=== PATIENT | male | born 1950 | race Caucasian/White ===

== ENCOUNTER 2016-10-09 20:56 | Observation (INO) | payer MEDICARE ==
--- NOTE | 2016-10-09 23:10 | ED ORDER SUMMARY ---
..... Patient: DARIAN CLEVELAND OrderSheet [facility] VisitID: [id number] [place] [address] 65y, M Registration Date/Time: 10/09/2016 ORDER SHEET Weight: 77.5 kg (stated) Allergies: None GENERAL ORDERS: Hospice Executive Director (Continuous) (CP) (20:59 10/09/2016 Leonid Elizondo) (Ack 21:13 AMcQuoid ER Tech1) (21:13 AMcQuoid ER Tech1) EKG - ER Stat (20:59 10/09/2016 Leonid Elizondo) (Ack 21:13 AMcQuoid ER Tech1) (21:13 AMcQuoid ER Tech1) Pulse oximeter (20:59 10/09/2016 Leonid Elizondo) (Ack 21:13 AMcQuoid ER Tech1) (21:13 AMcQuoid ER Tech1) Chest 2V Urgent (21:10/09/2016 Leonid Elizondo) (Ack 21:13 AMcQuoid ER Tech1) (21:15 Bart R.NShanelle) CBC w Diff Urgent (21:10/09/2016 Leonid Elizondo) (Ack 21:13 AMcQuoid ER Tech1) (21:13 AMcQuoid ER Tech1) CMP Urgent (21:10/09/2016 Leonid Elizondo) (Ack 21:13 AMcQuoid ER Tech1) (21:13 AMcQuoid ER Tech1) UA-Culture if indicated Urgent (21:10/09/2016 Leonid Elizondo) (Ack 21:13 AMcQuoid ER Tech1) PT with INR Urgent (21:10/09/2016 Leonid Elizondo) (Ack 21:13 AMcQuoid ER Tech1) (21:13 AMcQuoid ER Tech1) D-Dimer Urgent (21:10/09/2016 Leonid Elizondo) (Ack 21:13 AMcQuoid ER Tech1) (21:13 AMcQuoid ER Tech1) Lipase Urgent (21:10/09/2016 Leonid Elizondo) (Ack 21:13 AMcQuoid ER Tech1) (21:13 AMcQuoid ER Tech1) Troponin-I Urgent (21:19 10/09/2016 Leonid Elizondo) (21:27 AMcQuoid ER Tech1) CTA Thorax w Cont (No) (GFR > 60) Urgent (22:18 10/09/2016 Leonid Elizondo) (Ack 22:38 AMcQuoid ER Tech1) (23:01 MCampbell) Consult - Surgery (23:17 10/09/2016 Leonid Elizondo) (23:36 AMcQuoid ER Tech1) US Abdomen Limited (Yes) Urgent (23:30 10/09/2016 Leonid Elizondo) (Ack 23:36 AMcQuoid ER Tech1) (0:44 GUnger) MEDICATION ORDERS: GI Cocktail WHITE PO 30 mL (NOW) (21:09 10/09/2016 Leonid Elizondo) (Ack 21:15 KPage-Kuchan R.N.) (21:25 KPage-Kuchan R.N.) IV FLUIDS: IV Saline Lock (20:59 10/09/2016 Leonid Elizondo) (Ack 21:09 RCollier R.N.) (21:15 KPage-Kuchan R.N.) Zosyn IV 4.5 gm/100mL (NOW) (23:19 10/09/2016 Leonid Elizondo) (Ack 23:24 KPage-Kuchan R.N.) (0:09 KPage-Kuchan R.N.) ORDER SHEET NOTES: [Electronically signed by Laura Reagan R.N. (13:58 10/10/2016)] [Electronically signed by John Cole Dr. (13:21 10/15/2016)] [Electronically locked/signed by Laura Reagan R.N. (13:58 10/10/2016)]
--- NOTE | 2016-10-09 23:10 | ED CLINICAL REPORT ---
Clinical Report - Physicians/Mid Levels [facility] [address] [place] [address] 10/09/2016 20:55 Patient: DARIAN CLEVELAND Arrived- By ambulance. Historian- patient. HISTORY OF PRESENT ILLNESS Chief Complaint: CHEST PAIN. It is described as dull and it is described as located in other area (lower anterior chest). No radiation. This started today and is still present (unchanged). It was abrupt in onset and has been constant but is not gone now. Onset during rest. At its maximum, severity described as moderate. When seen in the E.D., severity described as moderate. Modifying factors- (worsened by nitro). Not relieved by anything. No nausea, vomiting, difficulty breathing or diaphoresis. No additional chest pain. Similar symptoms previously: None. Recent medical care: Not recently seen/assessed. REVIEW OF SYSTEMS No fever, chills or skin rash. All systems otherwise negative, except as recorded above. PAST HISTORY See nurses notes. SOCIAL HISTORY Never smoker. No alcohol use or drug use. No recent travel. Is a local resident. retired EMT. FAMILY HISTORY Negative. No history of heart disease. ADDITIONAL NOTES The nursing notes have been reviewed. PHYSICAL EXAM Vital Signs: 10/09/2016 20:57 BP: 130/83. HR: 76. RR: 19. O2 saturation: 97%. Temp: 98.1 F. Pain level now: 7/10. Blood pressure normal. Oxygen saturation normal. Appearance: Alert. Oriented X3. No acute distress. Eyes: Pupils equal, round and reactive to light. Eyes normal inspection. ENT: Ears normal. Nose normal. Pharynx normal. Neck: Normal inspection. Neck supple. CVS: Normal heart rate and rhythm. Heart sounds normal. Pulses normal. Respiratory: No respiratory distress. Breath sounds normal. Chest nontender. No rales, rhonchi or wheezes. Abdomen: Soft and nontender. Bowel sounds normal. Skin: Skin warm and dry. Normal skin color. No rash. Normal skin turgor. Extremities: Extremities exhibit normal ROM. No lower extremity edema. LABS, X-RAYS, AND EKG EKG: No acute ischemia. Normal sinus rhythm. Rate: 79. Normal P waves. Normal SIMONA. Normal QRS complex. Normal axis. Normal ST and T waves, QT and QTc. The study has been interpreted contemporaneously by me. The study has been independently viewed by me. The EKG appears to be a good tracing. Chest X-ray: (PROCEDURE: XR CHEST 2 VIEW INDICATION: Epigastric pain. Recent pneumonia. TECHNIQUE: PA and lateral views. COMPARISON: None. FINDINGS: There are mild parenchymal changes in the right lung (most pronounced in the right upper lung). There are mild nodular parenchymal change in the left mid lung. Heart and mediastinum are normal. Thorax is normal. IMPRESSION: 1. Mild parenchymal changes in the right lung consistent with pneumonia (e.g. resolving pneumonia) or chronic scarring. 2. Mild nodular parenchymal changes in the left mid lung. Consider underlying lung nodule or calcified pleural plaque.). Chest CT: (PROCEDURE: CTA THORAX WITH CONTRAST INDICATION: Epigastric pain. Recent pneumonia. Elevated D-dimer 0.85). Possible left lung nodule. TECHNIQUE: 88 ml of Isovue 370 was injected intravenously and axial images were obtained of the entire thorax with 3D sagittal and coronal MIP reconstructions. COMPARISON: Comparison is made to chest x-ray earlier today (10/09/2016). FINDINGS: There are moderate parenchymal changes in the right upper lung with mild parenchymal changes in the left upper lung. Findings are consistent with resolving pneumonia. Bilateral calcified pleural plaques (accounts for nodular changes on chest x-ray earlier today) with right diaphragmatic calcification (asbestosis). Pulmonary vessels are normal and there is no evidence of pulmonary embolus. Heart and mediastinum are normal. Mild degenerative change of the thoracic spine. Portions of the gallbladder are seen. There is marked thickening of the gallbladder wall pericholecystic fluid. IMPRESSION: 1. Moderate parenchymal changes in the right upper lung compatible with pneumonia (or resolving pneumonia). 2. Bilateral calcified pleural plaques consistent with asbestosis. No evidence of left lung mass or nodule (as suggested on radiographs earlier in the day). 3. No evidence of pulmonary embolus. 4. Gallbladder is partially visualized with marked thickening of the gallbladder wall and pericholecystic fluid. Findings are consistent with cholecystitis (most likely acute). Ultrasound is recommended to further evaluate.). The study was independently viewed by me and interpreted by the radiologist. The study was discussed with the radiologist (via pacs). Abdominal Sonogram: (PROCEDURE: US ABDOMEN ULTRASOUND-LIMITED INDICATION: Follow-up abnormal gallbladder. TECHNIQUE: Archuleta scale and color Doppler sonographic images of the abdomen were obtained. COMPARISON: None. FINDINGS: There is moderate to marked distention of the gallbladder with marked gallbladder wall thickening (6 mm). There is no evidence of gallstones. There is no evidence of pericholecystic fluid (as suggested on CT). Common duct is normal (7 mm). Portions of the liver, pancreas, and right kidney are seen, and are normal. IMPRESSION: 1. Moderate to marked distention of the gallbladder with marked gallbladder wall thickening (6 mm). No evidence of gallstones or pericholecystic fluid. 2. Findings are compatible with acute cholecystitis (i.e., most likely acalculus cholecystitis).). The study was independently viewed by me and interpreted by the radiologist. The study was discussed with the radiologist (via phone and pacs). Laboratory Tests: CBC w Diff: (THADDEUS: 10/09/2016 21:03) ( MsgRcvd 10/09/2016 21:25) Final results Test Result Flag Units (Reference) WHITE BLOOD COUNT 7.6 K/uL (4.5-11.5) RED BLOOD COUNT 4.17 L M/uL (4.50-5.90) HEMOGLOBIN 13.2 L gm/dL (13.5-17.5) HEMATOCRIT 39.1 L % (41.0-53.0) MEAN CELL VOLUME 94 fL (80-100) MEAN CORPUSCULAR HGB 32 pg (26-34) MEAN CORPUSCULAR HGB CONC 34 g/dL (31-37) RED CELL DISTRIBUTION WIDTH 12.7 % (11.6-14.8) PLATELET COUNT 271 K/uL (150-400) NEUTROPHIL % 68.8 % (50-75) LYMPH % 16.1 L % (25-40) MONO % 8.4 % (3-14) EOSINOPHIL % 6.4 H % (0-4) BASOPHIL % 0.3 % (0-2) PT with INR: (THADDEUS: 10/09/2016 21:03) ( MsgRcvd 10/09/2016 21:33) Final results Test Result Flag Units (Reference) INR 0.9 (0.8-1.2) Low Intensity Therapy: INR 1.5-2.0 PT range 18.5-23.1Mod.Intensity Therapy: INR 2.0-3.0 PT range 23.1-31.5High Intensity Therapy: INR 2.5-3.5 PT range 27.4-35.5High Intensity Therapy 2: INR 3.0-4.0 PT range 31.5-39.3 D-DIMER QUANTITATIVE 0.85 H ug/mLFEU (0.27-0.52) The primary value of this quantitative assay relates toits negative predictive value (i.e. exclusion) of pulmonaryembolism/deep vein thrombosis/DIC.Elevated levels of d-dimer may also occur with:, age, cancer, inflammation, liver disease,post-op, infection, hematoma, coronary disease, peripheralarteriopathy, bleeding disorders and thrombolytic treatment.Results should be correlated with other clinical andradiological data.Testing Methodology: Latex Immunoassay Troponin-I: (THADDEUS: 10/09/2016 21:19) ( SdgRcvd 10/09/2016 21:47) Final results Test Result Flag Units (Reference) TROPONIN I <0.05 L ng/mL (0.00-1.5) TROPONIN REFERENCE RANGE:<0.1 NEGATIVE0.1-1.5 INDETERMINANT>1.5 POSITIVE CMP: (THADDEUS: 10/09/2016 21:03) ( [facility] Final results Test Result Flag Units (Reference) GLUCOSE 116 H mg/dL (70-110) BUN 22 H mg/dL (7-18) CREATININE 1.2 mg/dL (0.6-1.3) Estimated GFR >60 mL/min Estimated GFR- >60 mL/min Note: Persistent reduction over 3 months in eGFR<60 mL/min/1.73 m2 defines CKD. Patients with eGFR values>=60 mL/min/1.73 m2 may also have CKD if evidence ofpersistent proteinuria. Additional information may be foundat www.[email or web address].org. SODIUM 143 mmol/L (136-145) POTASSIUM 4.3 mmol/L (3.5-5.1) CHLORIDE 104 mmol/L (98-107) CARBON DIOXIDE 28 mmol/L (21-32) CALCIUM 9.0 mg/dL (8.5-10.1) TOTAL PROTEIN 7.3 g/dL (6.4-8.2) ALBUMIN 3.8 g/dL (3.3-5.0) BILIRUBIN, TOTAL 0.5 mg/dL (0.0-1.0) ALKALINE PHOSPHATASE 116 U/L (46-116) AST (SGOT) 48 H U/L (15-37) ALT (SGPT) 73 U/L (12-78) LIPASE 203 U/L (73-393) . PROGRESS AND PROCEDURES Course of Care: the patient is a pleasant 65-year-old male with no pertinent past medical history presented for evaluation of what patient describes as chest pain. Patient has a port into the lower part of his chest. Patient reports no other concerning factors. Patient will be evaluated for chest pain causes including acute myocardial infarction, pulmonary embolism, pneumonia, pneumothorax. Because of the position of pain, isinferiorly located in the chest. We'll also evaluate patient for possible epigastric abdominal pain symptoms Including lipase and liver function studies.. Patient's initial examination the abdomen is benign. No findings of abdominal tenderness. On palpation of the patient's abdomen patient reports that the pain is higher. Patient's workup was remarkable for elevated d-dimer. Because of the patient's elevated d-dimer and chest pain, patient will be evaluated CT scan of the and chest for pulmonary embolism. Patient is agreeable to the treatment and plan. Patient is resting in bed and in no acute distress. Pain improved however worsened with nitroglycerin. Not likely cardiac. Patient's CT scan was remarkable for the findings above. Patient's "chest pain "appears to be epigastric in origin. Had discussion with patient in regards to symptoms here in the emergency department. Patient be admitted. I discussion with the general surgery in regards to patient's presentation here in the emergency department. No further recommendations. Patient will be admitted under the general surgery service with medicine consultation. Spoke with the hospitalist who will help consult with the patient. No other acute abnormalities noted. Discussed with the patient his workup here in the emergency department, plan of care, and diagnosis. All questions have been answered. The patient expressed understanding of these instructions and was agreeable to them. Do not fill symptoms at this time are because of pulmonary embolism, acute myocardial infarction, or intrathoracic pathology. Symptoms arelikely related to gallbladder given patient's abnormal CT scan. Critical care performed (40 minutes). Time is exclusive of separately billable procedures. Time includes: direct patient care, patient reassessment, coordination of patient care, interpretation of data (laboratory data), review of patient's medical records, medical consultation and documentation of patient care. CLINICAL IMPRESSION acute cholecystitis atypical chest pain. (Electronically signed by John Cole Dr. 10/15/2016 13:21)
--- NOTE | 2016-10-09 23:10 | ED NURSING NOTES ---
Clinical Report - Nurses [facility] [address] [place] [address] 10/09/2016 20:55 Patient: DARIAN CLEVELAND TRIAGE Triage time 20:57 Apr 2016. Acuity: LEVEL 2. Chief Complaint: CHEST PAIN and (pt c/o ss cp that began while cooking dinner, pt prior had been chopping wood- denied pain while exerting. describes as "an ache"). Alert. No acute distress. SEPSIS SCREEN: Sepsis Screen: negative. Negative (no infection suspected/documented). --21:12 Laura Reagan R.N. 20:57 10/09/16. BP: 130/83. HR: 76. RR: 19. O2 saturation: 97% on room air. Temp: 98.1 F. Pain level now: 01/07. --21:12 Laura Reagan R.N. Weight: 77.5 kg stated. Height/Length: 73 inches Per Patient. BMI: 22.5. --13:57 Laura Reagan R.N. Medications Atorvastatin Calcium Oral. --21:08 Laura Reagan R.N. Aspirin Adult Low Strength Oral. --21:08 Laura Reagan R.N. Aspirin Oral (Tablet 325 mg) 1 tablet, daily. --21:08 Laura Reagan R.N. Medication/allergy information source: the patient. --21:12 Laura Reagan R.N. Allergies None. --21:06 Laura Reagan R.N. History Arrived by EMS, and from home. Historian: patient. ( pt d/c for sepsis, while inpatient pt reports having HR up to the 200's). He has had nausea. 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 See EMS report. PAST MEDICAL HX: Immunizations: up-to-date. SOCIAL HX: Former smoker, end date 2014. Alcohol use; consumes beer occasionally. No drug use. No infectious disease exposure. ABUSE ASSESSMENT: No report of abuse. SELF HARM ASSESSMENT: A self harm assessment was performed. The patient answered "no" to the question "Have you recently felt down, depressed, or hopeless?", "Have you noticed less interest or pleasure in doing things?", "Do you have thoughts of harming or killing yourself?", "Are you here because you tried to hurt yourself?", "Have you ever tried to hurt yourself before today?", "Have you recently had thoughts about harming or killing others?" and "Do you have any dangerous items in your possession?". NUTRITIONAL RISK ASSESSMENT: The nutritional risk assessment revealed no deficiencies. LEARNING NEEDS ASSESSMENT: The learning needs assessment revealed no barriers. FUNCTIONAL ASSESSMENT: Functional assessment performed: hard of hearing in both ears and uses a hearing aid in both ears- this hearing impairment is an ongoing problem. SKIN INTEGRITY ASSESSMENT: Skin integrity risk assessment completed. No skin integrity risk identified. --21:12 Laura Reagan R.N. PROBLEMS: Elevated Cholesterol. Arterial spasms. --21:09 Laura Reagan R.N. ADDITIONAL SURGERIES: Cataract Surgery. Cervical discectomy. --21:10 Laura Reagan R.N. Interventions ID band on patient. To treatment room. --21:12 Laura Reagan R.N. PHYSICAL ASSESSMENT GENERAL / NEURO / PSYCH: Alert. Oriented X 4. Appears in no acute distress. HEENT: Mucous membranes are pink. RESPIRATORY: Respirations not labored. Chest nontender. Breath sounds within normal limits. CVS: Cardiac rhythm: no ectopy noted (SR). Heart sounds within normal limits. Pulses within normal limits. Capillary refill less than 2 seconds. GI / : Abdomen soft and nontender. EXTREMITIES: No lower extremity edema. SKIN: Skin is warm and dry. Normal skin turgor. Skin is non-tender. --21:13 Laura Reagan R.N. To room via stretcher. --21:13 Laura Reagan R.N. NURSING PROGRESS NOTES monitoring manager, pulse oximeter and NIBP monitor placed on patient; teletypesetter monitor- Lead II and V5; monitor alarms on. Patient gowned. Head of bed elevated. Reassurance given to the patient and patient's family. Two patient identifiers checked. Call light placed in reach. Side rails up x 2. Bed placed in lowest position. Brakes of bed on. --21:14 Laura Reagan R.N. 21:15 10/09/2016 Site #1 started prior to arrival by EMS via IV in the left antecubital space with an 18g angiocath (placed head bellhop captain). --21:15 Laura Reagan R.N. 21:25 10/09/2016 GI COCKTAIL WHITE (Simethicone) PO Oral Suspension 30 mL given. Allergies verified and confirmed 5 rights. --21:25 Laura Reagan R.N. ( pt reports "it's subsiding" pt in SR on monitor, s/o at bedside, white gi cocktail given as ordered,). --21:27 Laura Reagan R.N. 21:25 10/09/16. BP: 124/73. HR: 91. RR: 19. O2 saturation: 97%. Pain level now 3/10. --21:27 Laura Reagan R.N. Patient transported to radiology by stretcher with [facility]. (21:36). --21:36 Rowan Roldan R.N. Cardiac rhythm: (SR). Head of bed elevated. Reassessment after medication administered. Call light placed in reach. Side rails up x 2. Bed placed in lowest position. Brakes of bed on. ( pt reports pain has decreased to 2-3/10, pt states "when I was in xray and I put my arms above my head, the pain was worse" pt remains in SR, no ectopy noted on monitor). --22:02 Laura Reagan R.N. 21:54 10/09/16. BP: 124/78. HR: 74. RR: 17. O2 saturation: 96%. Pain level now 2/10. --22:02 Laura Reagan R.N. Patient transported to CT by stretcher. ([id number] 09 2016). --23:04 Laura Reagan R.N. ( MD at bedside explaining results of studies). --23:08 Laura Reagan R.N. 23:19 10/09/16. BP: 124/97. HR: 72. RR: 17. O2 saturation: 96%. Pain level now 4/10. --23:22 Laura Reagan R.N. Overall patient status is the same- he states feels the same. RESPIRATORY: No respiratory distress present. No respiratory distress. GI / : Denies nausea. SKIN: Skin color within normal limits. Patient waiting for admit bed. ( pt rates pain /10, pt declines offer of pain meds, "If it gets back up to a 7, I will ask you for something" s/o at bedside, both notifying family of results via texting, pt on monitor, aware he is an admit to hospital.). --23:22 Laura Reagan R.N. 20:57 10/09/16. EKG time: (2056). EKG was performed by a tech and shown to the ED physician. Checked patient name and birthdate: patient confirmed. Blood samples drawn from the right antecubital space by tech per protocol ; labeled in presence of the patient and sent to lab: rainbow set: cardiac enzymes (1st set). --23:23 Laura Reagan R.N. 23:54 10/09/2016 Started 4.5 gm of Zosyn (Piperacillin Sod-Tazobactam So) IVPB in bag #1 100 mL; at 120 mL/hr via site #1 via IV pump. Allergies verified and confirmed 5 rights. IV patency established. IV site checked: no pain, redness, or swelling. IV flushed thoroughly pre- and post-medication administration. --00:09 Laura Reagan R.N. Reassurance given. Patient identifiers checked. Call light placed in reach. Side rails up x 1. Bed placed in lowest position. Brakes of bed on. Patient waiting for admit bed. ( US at bedside). --00:12 Laura Reagan R.N. 00:10 10/10/16. BP: 124/70. HR: 66. RR: 17. O2 saturation: 97%. Temp: 98.4 F. Pain level now 10/08. --00:12 Laura Reagan R.N. ( attempted to call report, accepting RN busy-). --00:17 Laura Reagan R.N. DISPOSITION / DISCHARGE Cardiac rhythm: (SR). Condition at departure: stable. Admitted to Acute Care (1237). Transported via stretcher by [facility]. Report was given to a nurse via a phone call. Report included patient's care, treatment, medications, reviewed medication reconcilliation, and condition (including any recent changes or anticipated changes). All questions were answered. Report was acknowledged and care was transferred. (Milagro RN). ( pt sleeping, transport notified.). Patient's personal items include: shirt, pants, undergarments, socks, shoes, two hearing aids and cell phone; items were transported with the patient. --00:39 Laura Reagan R.N. 00:35 10/10/16. BP: 109/70. HR: 64. RR: 15. O2 saturation: 96%. --00:39 Laura Reagan R.N. Departure time: 00:39 Oct 10 2016. --00:39 Laura Reagan R.N. Locked/Released at 10/10/2016 13:58 by Laura Reagan R.N.
--- NOTE | 2016-10-09 23:10 | ED ORDER SUMMARY ---
..... Patient: DARIAN CLEVELAND OrderSheet [facility] VisitID: [id number] [place] [address] 65y, M Registration Date/Time: 10/09/2016 ORDER SHEET Weight: 77.5 kg (stated) Allergies: None GENERAL ORDERS: Cooker Chip (Continuous) (CP) (20:59 10/09/2016 Leonid Elizondo) (Ack 21:13 AMcQuoid ER Tech1) (21:13 AMcQuoid ER Tech1) EKG - ER Stat (20:59 10/09/2016 Leonid Elizondo) (Ack 21:13 AMcQuoid ER Tech1) (21:13 AMcQuoid ER Tech1) Pulse oximeter (20:59 10/09/2016 Leonid Elizondo) (Ack 21:13 AMcQuoid ER Tech1) (21:13 AMcQuoid ER Tech1) Chest 2V Urgent (21:10/09/2016 Leonid Elizondo) (Ack 21:13 AMcQuoid ER Tech1) (21:15 Bart R.NShanelle) CBC w Diff Urgent (21:10/09/2016 Leonid Elizondo) (Ack 21:13 AMcQuoid ER Tech1) (21:13 AMcQuoid ER Tech1) CMP Urgent (21:10/09/2016 Leonid Elizondo) (Ack 21:13 AMcQuoid ER Tech1) (21:13 AMcQuoid ER Tech1) UA-Culture if indicated Urgent (21:10/09/2016 Leonid Elizondo) (Ack 21:13 AMcQuoid ER Tech1) PT with INR Urgent (21:10/09/2016 Leonid Elizondo) (Ack 21:13 AMcQuoid ER Tech1) (21:13 AMcQuoid ER Tech1) D-Dimer Urgent (21:10/09/2016 Leonid Elizondo) (Ack 21:13 AMcQuoid ER Tech1) (21:13 AMcQuoid ER Tech1) Lipase Urgent (21:10/09/2016 Leonid Elizondo) (Ack 21:13 AMcQuoid ER Tech1) (21:13 AMcQuoid ER Tech1) Troponin-I Urgent (21:19 10/09/2016 Leonid Elizondo) (21:27 AMcQuoid ER Tech1) CTA Thorax w Cont (No) (GFR > 60) Urgent (22:18 10/09/2016 Leonid Elizondo) (Ack 22:38 AMcQuoid ER Tech1) (23:01 MCampbell) Consult - Surgery (23:17 10/09/2016 Leonid Elizondo) (23:36 AMcQuoid ER Tech1) US Abdomen Limited (Yes) Urgent (23:30 10/09/2016 Leonid Elizondo) (Ack 23:36 AMcQuoid ER Tech1) (0:44 GUnger) MEDICATION ORDERS: GI Cocktail WHITE PO 30 mL (NOW) (21:09 10/09/2016 Leonid Elizondo) (Ack 21:15 KPage-Kuchan R.N.) (21:25 KPage-Kuchan R.N.) IV FLUIDS: IV Saline Lock (20:59 10/09/2016 Leonid Elizondo) (Ack 21:09 RCollier R.N.) (21:15 KPage-Kuchan R.N.) Zosyn IV 4.5 gm/100mL (NOW) (23:19 10/09/2016 Leonid Elizondo) (Ack 23:24 KPage-Kuchan R.N.) (0:09 KPage-Kuchan R.N.) ORDER SHEET NOTES: [Electronically signed by Laura Reagan R.N. (13:58 10/10/2016)] [Electronically signed by John Cole Dr. (13:21 10/15/2016)] [Electronically locked/signed by Laura Reagan R.N. (13:58 10/10/2016)]
--- NOTE | 2016-10-09 23:10 | ED NURSING NOTES ---
Clinical Report - Nurses [facility] [address] [place] [address] 10/09/2016 20:55 Patient: DARIAN CLEVELAND TRIAGE Triage time 20:57 Apr 2016. Acuity: LEVEL 2. Chief Complaint: CHEST PAIN and (pt c/o ss cp that began while cooking dinner, pt prior had been chopping wood- denied pain while exerting. describes as "an ache"). Alert. No acute distress. SEPSIS SCREEN: Sepsis Screen: negative. Negative (no infection suspected/documented). --21:12 Laura Reagan R.N. 20:57 10/09/16. BP: 130/83. HR: 76. RR: 19. O2 saturation: 97% on room air. Temp: 98.1 F. Pain level now: 01/07. --21:12 Laura Reagan R.N. Weight: 77.5 kg stated. Height/Length: 73 inches Per Patient. BMI: 22.5. --13:57 Laura Reagan R.N. Medications Atorvastatin Calcium Oral. --21:08 Laura Reagan R.N. Aspirin Adult Low Strength Oral. --21:08 Laura Reagan R.N. Aspirin Oral (Tablet 325 mg) 1 tablet, daily. --21:08 Laura Reagan R.N. Medication/allergy information source: the patient. --21:12 Laura Reagan R.N. Allergies None. --21:06 Laura Reagan R.N. History Arrived by EMS, and from home. Historian: patient. ( pt d/c for sepsis, while inpatient pt reports having HR up to the 200's). He has had nausea. 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 See EMS report. PAST MEDICAL HX: Immunizations: up-to-date. SOCIAL HX: Former smoker, end date 2014. Alcohol use; consumes beer occasionally. No drug use. No infectious disease exposure. ABUSE ASSESSMENT: No report of abuse. SELF HARM ASSESSMENT: A self harm assessment was performed. The patient answered "no" to the question "Have you recently felt down, depressed, or hopeless?", "Have you noticed less interest or pleasure in doing things?", "Do you have thoughts of harming or killing yourself?", "Are you here because you tried to hurt yourself?", "Have you ever tried to hurt yourself before today?", "Have you recently had thoughts about harming or killing others?" and "Do you have any dangerous items in your possession?". NUTRITIONAL RISK ASSESSMENT: The nutritional risk assessment revealed no deficiencies. LEARNING NEEDS ASSESSMENT: The learning needs assessment revealed no barriers. FUNCTIONAL ASSESSMENT: Functional assessment performed: hard of hearing in both ears and uses a hearing aid in both ears- this hearing impairment is an ongoing problem. SKIN INTEGRITY ASSESSMENT: Skin integrity risk assessment completed. No skin integrity risk identified. --21:12 Laura Reagan R.N. PROBLEMS: Elevated Cholesterol. Arterial spasms. --21:09 Laura Reagan R.N. ADDITIONAL SURGERIES: Cataract Surgery. Cervical discectomy. --21:10 Laura Reagan R.N. Interventions ID band on patient. To treatment room. --21:12 Laura Reagan R.N. PHYSICAL ASSESSMENT GENERAL / NEURO / PSYCH: Alert. Oriented X 4. Appears in no acute distress. HEENT: Mucous membranes are pink. RESPIRATORY: Respirations not labored. Chest nontender. Breath sounds within normal limits. CVS: Cardiac rhythm: no ectopy noted (SR). Heart sounds within normal limits. Pulses within normal limits. Capillary refill less than 2 seconds. GI / : Abdomen soft and nontender. EXTREMITIES: No lower extremity edema. SKIN: Skin is warm and dry. Normal skin turgor. Skin is non-tender. --21:13 Laura Reagan R.N. To room via stretcher. --21:13 Laura Reagan R.N. NURSING PROGRESS NOTES clinical research monitor, pulse oximeter and NIBP monitor placed on patient; clinical research monitor- Lead II and V5; monitor alarms on. Patient gowned. Head of bed elevated. Reassurance given to the patient and patient's family. Two patient identifiers checked. Call light placed in reach. Side rails up x 2. Bed placed in lowest position. Brakes of bed on. --21:14 Laura Reagan R.N. 21:15 10/09/2016 Site #1 started prior to arrival by EMS via IV in the left antecubital space with an 18g angiocath (placed field captain). --21:15 Laura Reagan R.N. 21:25 10/09/2016 GI COCKTAIL WHITE (Simethicone) PO Oral Suspension 30 mL given. Allergies verified and confirmed 5 rights. --21:25 Laura Raegan R.N. ( pt reports "it's subsiding" pt in SR on monitor, s/o at bedside, white gi cocktail given as ordered,). --21:27 Laura Reagan R.N. 21:25 10/09/16. BP: 124/73. HR: 91. RR: 19. O2 saturation: 97%. Pain level now 3/10. --21:27 Laura Reagan R.N. Patient transported to radiology by stretcher with [employer]. (21:36). --21:36 Rowan Roldan R.N. Cardiac rhythm: (SR). Head of bed elevated. Reassessment after medication administered. Call light placed in reach. Side rails up x 2. Bed placed in lowest position. Brakes of bed on. ( pt reports pain has decreased to 2-3/10, pt states "when I was in xray and I put my arms above my head, the pain was worse" pt remains in SR, no ectopy noted on monitor). --22:02 Laura Reagan R.N. 21:54 10/09/16. BP: 124/78. HR: 74. RR: 17. O2 saturation: 96%. Pain level now 2/10. --22:02 Laura Reagan R.N. Patient transported to CT by stretcher. ([id number] 2016). --23:04 Laura Reagan R.N. ( MD at bedside explaining results of studies). --23:08 Laura Reagan R.N. 23:19 10/09/16. BP: 124/97. HR: 72. RR: 17. O2 saturation: 96%. Pain level now 4/10. --23:22 Laura Reagan R.N. Overall patient status is the same- he states feels the same. RESPIRATORY: No respiratory distress present. No respiratory distress. GI / : Denies nausea. SKIN: Skin color within normal limits. Patient waiting for admit bed. ( pt rates pain /10, pt declines offer of pain meds, "If it gets back up to a 7, I will ask you for something" s/o at bedside, both notifying family of results via texting, pt on monitor, aware he is an admit to hospital.). --23:22 Laura Reagan R.N. 20:57 10/09/16. EKG time: (2056). EKG was performed by a tech and shown to the ED physician. Checked patient name and birthdate: patient confirmed. Blood samples drawn from the right antecubital space by tech per protocol ; labeled in presence of the patient and sent to lab: rainbow set: cardiac enzymes (1st set). --23:23 Laura Reagan R.N. 23:54 10/09/2016 Started 4.5 gm of Zosyn (Piperacillin Sod-Tazobactam So) IVPB in bag #1 100 mL; at 120 mL/hr via site #1 via IV pump. Allergies verified and confirmed 5 rights. IV patency established. IV site checked: no pain, redness, or swelling. IV flushed thoroughly pre- and post-medication administration. --00:09 Laura Reagan R.N. Reassurance given. Patient identifiers checked. Call light placed in reach. Side rails up x 1. Bed placed in lowest position. Brakes of bed on. Patient waiting for admit bed. ( US at bedside). --00:12 Laura Reagan R.N. 00:10 10/10/16. BP: 124/70. HR: 66. RR: 17. O2 saturation: 97%. Temp: 98.4 F. Pain level now 10/08. --00:12 Laura Reagan R.N. ( attempted to call report, accepting RN busy-). --00:17 Laura Reagan R.N. DISPOSITION / DISCHARGE Cardiac rhythm: (SR). Condition at departure: stable. Admitted to Acute Care (1237). Transported via stretcher by [employer]. Report was given to a nurse via a phone call. Report included patient's care, treatment, medications, reviewed medication reconcilliation, and condition (including any recent changes or anticipated changes). All questions were answered. Report was acknowledged and care was transferred. (Milagro RN). ( pt sleeping, transport notified.). Patient's personal items include: shirt, pants, undergarments, socks, shoes, two hearing aids and cell phone; items were transported with the patient. --00:39 Laura Reagan R.N. 00:35 10/10/16. BP: 109/70. HR: 64. RR: 15. O2 saturation: 96%. --00:39 Laura Reagan R.N. Departure time: 00:39 Oct 10 2016. --00:39 Laura Reagan R.N. Locked/Released at 10/10/2016 13:58 by Laura Reagan R.N.
--- NOTE | 2016-10-09 23:35 | DIAGNOSTIC IMAGING REPORT ---
PROCEDURE: XR CHEST 2 VIEW INDICATION: Epigastric pain. Recent pneumonia. TECHNIQUE: PA and lateral views. COMPARISON: None. FINDINGS: There are mild parenchymal changes in the right lung (most pronounced in the right upper lung). There are mild nodular parenchymal change in the left mid lung. Heart and mediastinum are normal. Thorax is normal. IMPRESSION: 1. Mild parenchymal changes in the right lung consistent with pneumonia (e.g. resolving pneumonia) or chronic scarring. 2. Mild nodular parenchymal changes in the left mid lung. Consider underlying lung nodule or calcified pleural plaque.
--- NOTE | 2016-10-09 23:54 | DIAGNOSTIC IMAGING REPORT ---
PROCEDURE: CTA THORAX WITH CONTRAST INDICATION: Epigastric pain. Recent pneumonia. Elevated D-dimer 0.85). Possible left lung nodule. TECHNIQUE: 88 ml of Isovue 370 was injected intravenously and axial images were obtained of the entire thorax with 3D sagittal and coronal MIP reconstructions. COMPARISON: Comparison is made to chest x-ray earlier today (10/09/2016). FINDINGS: There are moderate parenchymal changes in the right upper lung with mild parenchymal changes in the left upper lung. Findings are consistent with resolving pneumonia. Bilateral calcified pleural plaques (accounts for nodular changes on chest x-ray earlier today) with right diaphragmatic calcification (asbestosis). Pulmonary vessels are normal and there is no evidence of pulmonary embolus. Heart and mediastinum are normal. Mild degenerative change of the thoracic spine. Portions of the gallbladder are seen. There is marked thickening of the gallbladder wall pericholecystic fluid. IMPRESSION: 1. Moderate parenchymal changes in the right upper lung compatible with pneumonia (or resolving pneumonia). 2. Bilateral calcified pleural plaques consistent with asbestosis. No evidence of left lung mass or nodule (as suggested on radiographs earlier in the day). 3. No evidence of pulmonary embolus. 4. Gallbladder is partially visualized with marked thickening of the gallbladder wall and pericholecystic fluid. Findings are consistent with cholecystitis (most likely acute). Ultrasound is recommended to further evaluate. 5. Findings discussed with Dr. John Cole. All CT scans at this facility use dose modulation, iterative reconstruction, and/or weight-based dosing when appropriate to reduce radiation dose to as low as reasonably achievable.
--- NOTE | 2016-10-09 23:59 | Progress Note ---
Subjective General Full note dictated 65 y.o male who presented with right lower chest/upper abd pain admitted with "hot gallbladder" Recent pneumonia. Plan: surgery consult, IV abx, likely surgery tomorrow. full code
[2016-10-10] VITALS (12 sets, daily range): BP systolic 94–138; BP diastolic 63–74
--- NOTE | 2016-10-10 00:41 | DIAGNOSTIC IMAGING REPORT ---
PROCEDURE: US ABDOMEN ULTRASOUND-LIMITED INDICATION: Follow-up abnormal gallbladder. TECHNIQUE: Archuleta scale and color Doppler sonographic images of the abdomen were obtained. COMPARISON: None. FINDINGS: There is moderate to marked distention of the gallbladder with marked gallbladder wall thickening (6 mm). There is no evidence of gallstones. There is no evidence of pericholecystic fluid (as suggested on CT). Common duct is normal (7 mm). Portions of the liver, pancreas, and right kidney are seen, and are normal. IMPRESSION: 1. Moderate to marked distention of the gallbladder with marked gallbladder wall thickening (6 mm). No evidence of gallstones or pericholecystic fluid. 2. Findings are compatible with acute cholecystitis (i.e., most likely acalculus cholecystitis). 3. Findings discussed with Dr. John Cole.
--- NOTE | 2016-10-10 01:04 | HISTORY AND PHYSICAL ---
ADMITTED: 10/09/2016 CHIEF COMPLAINT: 1. Abdominal pain, chest pain HISTORY OF PRESENT ILLNESS: The patient is a 65-year-old male who started having abrupt 7/10 chest discomfort, right upper abdomen discomfort, lower chest. He was taken to the emergency department. He was given some nitroglycerin by the day haul or farm charter bus driver and it seemed to make things worse, if anything. In the emergency department he was given a GI cocktail that did not help. He had a positive D-dimer and in the work up a CT pulmonary angiogram was performed, which showed a hot gallbladder and the patient has cholecystitis. MEDICAL/SURGICAL HISTORY: Past medical history: Notable for recent pneumonia for which he was admitted at [facility]. He has had hypercholesterolemia, but otherwise has been healthy. Past Surgical history: Cervical diskectomy, cataracts bilaterally. MEDICATIONS: 1. Atorvastatin 40 mg p.o. daily. 2. Aspirin 81 mg p.o. daily. ALLERGIES: 1. NONE KNOWN. SOCIAL HISTORY: He occasionally has a drink of alcohol. Denies any drug use and denies tobacco. He does not have any recent travel. He is a retired EMT. FAMILY HISTORY: Noncontributory. REVIEW OF SYSTEMS: He denies fever, chills, rash. He feels like his pneumonia is getting better. Otherwise, besides this review of systems is negative. PHYSICAL EXAMINATION: GENERAL: He is an alert male, comfortable, no apparent distress, on the [facility]. VITAL SIGNS: His blood pressure is 130/83, heart rate of 76, respirations 19, saturating 97%, temperature is 98.1. HEENT: Extraocular movements intact. Pupils equal, round, reactive to light. Oropharynx is clear with moist mucous membranes. NECK: Supple without lymphadenopathy. LUNGS: Clear to auscultation bilaterally. HEART: Regular rate and rhythm. No murmur. ABDOMEN: Soft. It is tender to palpation in the right upper abdomen with a positive Jaime sign. LAB/IMAGING: EKG: Shows no ischemia, normal sinus rhythm, heart rate of 70, with normal ST-T wave changes. CT pulmonary angiogram: Shows a hot gallbladder. White count of 7.6, hematocrit 39.1, platelets of 271,000. INR of 0.9. Troponin I less than 0.05. D-dimer was 0.85. CMP: Glucose 116, BUN of 22, creatinine of 1.2, sodium 143, potassium 4.3, chloride 104, carbon dioxide 28, calcium 9.0, total protein 7.3. Albumin 3.8, bili 0.5, alk phos 116, AST of 48, ALT 73, lipase of 203. IMPRESSION: 1. This is a 65-year-old male who presented to the emergency department with abdominal pain. His abdominal pain seems to be related to a hot gallbladder. PLAN: Admit him to the hospital, treat with cefotetan 1 g q.12 hours. We will consult surgery and anticipate patient will go to surgery tomorrow. He is generally in good health and anticipate he will have an uncomplicated stay.
--- NOTE | 2016-10-10 02:57 | NUR ---
PT. ARRIVED TO FLOOR VIA ER STRETCHER AT APPROX. 0115. PT. IS ALERT, ORIENTED, AND COOPERATIVE. C/O 2/10 PAIN IN ABDOMEN, ALL ACROSS UPPER ABDOMEN. DECLINES THE NEED FOR PAIN MEDICATION, STATES HE WILL PROBABLY WANT PAIN MEDICATION IF IT GETS TO 7/10, BUT WILL LET THIS RN KNOW. PT. IS ON TELEMETRY AND IS NSR WITH HR IN 60'S-70'S. CALL LIGHT WITHIN REACH. CAMILO.
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
--- NOTE | 2016-10-10 07:30 | Progress Note ---
Subjective General Patient states that he feels well other than his abdominal pain. Denies cp,sob. States that he has been seen in past by cardiology with coronary vascular spasm. Had it a lot as a child and then rarely as an adult. Has seen cardiology and has been stable for years. Does have a stress test in around a month coming up just as a routine f/u. Has been fine for surgery in the past per patient. He would like to proceed with surgery at this time. Physical Exam Vital Signs / I&Os Vital Signs Date Time Temp Pulse Resp B/P Pulse O2 O2 Flow FiO2 Ox Delivery Rate 10/10 0720 98.4 67 18 110/74 96 Room Air 0.0 10/10 0212 98.6 68 15 124/69 96 Room Air 10/10 0125 98.6 102 19 138/70 100 Room Air 0.0 General Appearance Alert, Cooperative HEENT Normal exam Lungs coarse BS non focal Cardiovascular Regular rate and rhythm, No murmurs, gallops, rubs Abdomen Soft, tender right upper abdomen Extremities No edema Other CXR: IMPRESSION: 1. Mild parenchymal changes in the right lung consistent with pneumonia (e.g. resolving pneumonia) or chronic scarring. 2. Mild nodular parenchymal changes in the left mid lung. Consider underlying lung nodule or calcified pleural plaque. CT chest: IMPRESSION: 1. Moderate parenchymal changes in the right upper lung compatible with pneumonia (or resolving pneumonia). 2. Bilateral calcified pleural plaques consistent with asbestosis. No evidence of left lung mass or nodule (as suggested on radiographs earlier in the day). 3. No evidence of pulmonary embolus. 4. Gallbladder is partially visualized with marked thickening of the gallbladder wall and pericholecystic fluid. Findings are consistent with cholecystitis (most likely acute). Ultrasound is recommended to further evaluate. US: IMPRESSION: 1. Moderate to marked distention of the gallbladder with marked gallbladder wall thickening (6 mm). No evidence of gallstones or pericholecystic fluid. 2. Findings are compatible with acute cholecystitis (i.e., most likely acalculus cholecystitis). LAB Results Laboratory Tests 10/09 Chemistry Plasma Sodium (136 - 145 mmol/L) 143 Plasma Potassium (3.5 - 5.1 mmol/L) 4.3 Plasma Chloride (98 - 107 mmol/L) 104 CO2 (Enzymatic) (21 - 32 mmol/L) 28 BUN (7 - 18 mg/dL) 22 Creatinine (0.6 - 1.3 mg/dL) 1.2 Est GFR ( Amer) (mL/min) >60 Est GFR (Non-Af Amer) (mL/min) >60 Glucose (70 - 110 mg/dL) 116 Plasma Calcium (8.5 - 10.1 mg/dL) 9.0 Total Bilirubin (0.0 - 1.0 mg/dL) 0.5 AST (15 - 37 U/L) 48 ALT (12 - 78 U/L) 73 Alkaline Phosphatase (46 - 116 U/L) 116 Troponin (0.00 - 1.5 ng/mL) <0.05 Total Protein (6.4 - 8.2 g/dL) 7.3 Albumin (3.3 - 5.0 g/dL) 3.8 Lipase (73 - 393 U/L) 203 Coagulation INR (0.8 - 1.2) 0.9 D-Dimer, Quantitative (0.27 - 0.52 ug/mLFEU) 0.85 Hematology WBC (4.5 - 11.5 K/uL) 7.6 RBC (4.50 - 5.90 M/uL) 4.17 Hgb (13.5 - 17.5 gm/dL) 13.2 Hct (41.0 - 53.0 %) 39.1 MCV (80 - 100 fL) 94 MCH (26 - 34 pg) 32 RDW (11.6 - 14.8 %) 12.7 Neut % (Auto) (50 - 75 %) 68.8 Lymph % (Auto) (25 - 40 %) 16.1 Clark % (Auto) (3 - 14 %) 8.4 Eos % (Auto) (0 - 4 %) 6.4 Baso % (Auto) (0 - 2 %) 0.3 Plt Count, EDTA (150 - 400 K/uL) 271 PUBS MCHC (31 - 37 g/dL) 34 Assessment and Plan Problem List 1. Cholecystitis Plan Is with admission for cholecystitis and will have him go to OR today 2. Coronary vasospasm Plan Hx of this for decades and stable, should be fine for surgery, no chest symptoms. 3. Pneumonia Plan Was treated nearly 1 month ago with abx at [place] and improved. Has abnl cxr ,CT and will give bronchodilators adonis operatively. Clinically feels well.
[2016-10-10] MEDS ORDERED: ASPIRIN ADULT L81 MG PO (08:06)
[2016-10-10] MEDS ORDERED: ATORVASTATIN CA10 MG PO (08:07)
--- NOTE | 2016-10-10 14:04 | DIAGNOSTIC IMAGING REPORT ---
PROCEDURE: XR INTRAOPERATIVE LAP ANA MARÍA INDICATION: LAP ANA MARÍA WITH GRAMS TECHNIQUE: Intraoperative fluoroscopy provided for Dr. Multani performing an intraoperative cholangiogram following cholecystectomy. Total fluoroscopy time 0.7 minutes Cumulative dose 20 mGy. COMPARISON: None. FINDINGS: One intraoperative fluoroscopic spot images of the right upper quadrant of the abdomen demonstrate cannulation of the cystic duct stump and opacification of the intrahepatic and extrahepatic biliary tree. There are no filling defects. There is normal passage of contrast into the duodenum. IMPRESSION: 1. Negative intraoperative cholangiogram.
--- NOTE | 2016-10-10 14:23 | NUR ---
PATIENT ARRIVED TO PACU AT 1417. SPONT RESP. AROUSABLE TO VOICE. VITALS STABLE. ABDOMEN SOFT, WITH CLEAN, DRY DRESSINGS ON 4 TROCHAR SITES. DENIES PAIN AND NAUSEA AT THIS TIME. WILL CONTINUE TO MONITOR.
--- NOTE | 2016-10-10 14:42 | NUR ---
PATIENT'S VITALS REMAIN STABLE. CONTINUES TO DENY PAIN/NAUSEA
--- NOTE | 2016-10-10 14:47 | OPERATIVE REPORT ---
DATE OF SURGERY: 10/10/2016 SURGEON: Darion Multani III, MD PRIVATE INVESTIGATOR SURVEILLANCE: None. PREOPERATIVE DIAGNOSIS: 1. Acalculous cholecystitis POSTOPERATIVE DIAGNOSIS: 1. Acalculous cholecystitis PROCEDURE PERFORMED: 1. Laparoscopic cholecystectomy 2. Fluoroscopic intraoperative cholangiogram. ANESTHESIA: General endotracheal anesthesia. ESTIMATED BLOOD LOSS: Minimal. FLUIDS: 600 mL of lactated Ringers. PATHOLOGY SPECIMEN: Gallbladder and contents. INDICATIONS: The patient is a 65-year-old male with epigastric abdominal complaints. Workup in the emergency room to rule out cardiac and pulmonary problems resulted in a CT showing a distended thick walled gallbladder. This was followed by ultrasound of his gallbladder, which showed a thickened distended gallbladder, consistent with acalculous cholecystitis. Liver function studies, total bilirubin and alkaline phosphatase were normal. SURGICAL FINDINGS: The patient did have a distended thick walled edematous gallbladder. Fluoroscopic intraoperative cholangiogram normal with free flow of contrast material in the duodenum with no evidence of retained stones, normal-appearing visualization of the intrahepatic ducts, extrahepatic duct and the common bile duct. SURGICAL TECHNIQUE: The patient was brought to the operating room and placed in the dorsal supine position, where he underwent general endotracheal anesthesia by the anesthesiology department. After proper anesthesia had taken effect, the patient 's abdomen was prepped using Betadine and draped in a sterile fashion. An infraumbilical incision made, carried down through skin and subcutaneous tissue. A Veress needle was inserted through this site into the abdominal cavity and after ascertaining its appropriate position with suction irrigation, a pneumoperitoneum obtained using CO2 insufflation to approximately 14-15 mmHg pressure. Once this pressure was reached, the Veress needle was removed. A 10 mm trocar was introduced into the abdominal cavity and after ascertaining its appropriate position, the trocar removed leaving the sleeve behind, through which a laparoscopic video camera was introduced in the abdominal cavity. Under direct visualization, a separate 10 mm trocar was placed in the subxiphoid region, two 5 mm trocars were placed in the anterolateral abdominal wall, approximately 3-4 fingerbreadths below the costal margin. The trocars were removed, leaving the sleeves behind, through which laparoscopic instrumentation was introduced into the abdominal cavity. The gallbladder grasped and retracted cephalad. Adhesions to the left lobe of the liver and gallbladder were taken down using electrocautery dissection. We were able then to circumferentially isolate the cystic duct. A clip was placed at the junction of the neck of gallbladder and the cystic duct. A small incision made in the anterior surface of the cystic duct. A percutaneous cholangiogram catheter was threaded through the anterior abdominal wall into the cystic duct, clipped into position and a fluoroscopic intraoperative cholangiogram obtained with the aforementioned findings noted. Once completed, the percutaneous cholangiogram catheter was retrieved from the cystic duct and the abdominal cavity. The distal cystic duct was clipped in continuity and divided. The cystic artery identified, clipped in continuity and divided. The gallbladder was taken down from its bed in a retrograde fashion using electrocautery dissection. Once completely freed, it was placed in a sterile specimen container bag and retrieved from the abdominal cavity and sent to pathology. The right upper quadrant was irrigated copiously with warm normal saline and antibiotic solution and the irrigant suctioned out. Hemostasis achieved. Approximately 30 mL of 0.5% Marcaine with epinephrine was sprayed over the right and left dome of the liver for postoperative analgesia. The pneumoperitoneum released and all trocars were removed from the abdominal cavity. All trocar sites approximated using 4-0 subdermal Polysorb and Steri-Strips. A sterile pressure occlusive dressing was placed over each site. The patient tolerated the procedure well, was extubated and transferred to the recovery room in stable condition. There were no intraoperative or anesthetic complications.
--- NOTE | 2016-10-10 17:55 | NUR ---
UP TO CHAIR WHILE EATING. AMBULATING IN HALLWAY. ENCOURGING IS. SCDS ON FOR DVT PREVENTION.
--- NOTE | 2016-10-10 23:05 | NUR ---
PATIENT RESTING IN BED. DRESSING STILL C/D/I ON ABDOMEN. ENCOURIGING IS. AMBULATING IN HALLWAYS. UP TO CHAIR WHEN EATING.
--- NOTE | 2016-10-10 23:08 | NUR ---
WAS PASSED OFF IN REPORT DR WAS AWARE OF CURRENT LABS. SCDS ON FOR DVT PREVENTION .
--- NOTE | 2016-10-11 00:41 | NUR ---
Pt. is resting in bed at this time. States his abdomen is painful with deep breaths, like when using the IS. States his pain 3/10, declines the need for pain medication. Administered IV tylenol, pt. is compliant with ambulating. Denies nausea. WCTM.
[2016-10-11 01:38] VITALS: BP 116/74
[2016-10-11 06:37] VITALS: BP 97/60
[2016-10-11] MEDS ORDERED: HYCET1 ML PO (06:38)
--- NOTE | 2016-10-11 06:39 | Provider's Discharge Care Plan ---
Problem, Goal, Plan Problem List 1. S/P laparoscopic cholecystectomy Goals: Improve disease control, Therapeutic intervention Instructions: Follow up as directed, Take meds as directed
--- NOTE | 2016-10-11 06:39 | Provider's Discharge Care Plan ---
Problem, Goal, Plan Problem List 1. S/P laparoscopic cholecystectomy Goals: Improve disease control, Therapeutic intervention Instructions: Follow up as directed, Take meds as directed
[2016-10-11 08:18] VITALS: BP 115/64
--- NOTE | 2016-10-11 08:58 | Progress Note ---
Subjective General No new complaints. afebrile No chest pain or shortnessof breath No cough. No nausea, vomitng or abdominal pain Physical Exam Vital Signs / I&Os Vital Signs Date Time Temp Pulse Resp B/P Pulse O2 O2 Flow FiO2 Ox Delivery Rate 10/11 0818 115/64 10/11 0637 97.7 62 19 97/60 95 10/11 0138 97.7 64 18 116/74 96 Room Air 10/10 2305 98.2 73 16 105/63 95 Room Air 10/10 1817 97.7 81 16 102/64 96 Room Air 10/10 1705 97.9 67 16 106/65 94 Room Air 10/10 1635 97.5 69 15 101/65 94 Room Air 10/10 1620 97.7 69 15 104/65 93 Room Air 10/10 1605 97.5 73 15 112/70 96 Room Air 10/10 1550 97.7 80 14 94/65 95 Room Air 10/10 1534 97.7 71 15 106/70 94 Room Air 10/10 1520 68 11 110/60 98 10/10 1515 70 12 109/61 98 10/10 1510 73 11 101/69 97 10/10 1505 76 12 116/65 97 10/10 1500 72 10 115/66 99 10/10 1455 77 10 118/69 99 10/10 1450 74 11 116/67 99 10/10 1445 83 18 120/66 99 10/10 1440 78 13 116/67 99 10/10 1435 87 11 123/69 98 10/10 1430 82 11 115/77 99 10/10 1425 84 10 110/65 98 10/10 1420 76 10 110/60 99 10/10 1417 97.9 78 10 116/65 99 Nasal 3.0 Cannula 10/10 1131 98.2 67 18 124/72 96 Room Air 10/10 0900 Room Air I&O 10/11 0000 10/10 1600 10/10 0800 Intake Total 1000 650 539 Output Total 1375 1420 450 Balance -375 -770 89 General Appearance Alert, Oriented X3, Cooperative Lungs Clear to auscultation Cardiovascular Regular rate and rhythm, Normal S1 and S2, No murmurs, gallops, rubs Abdomen Soft, No guarding, No rebound, surgical sites clean and dry, minimal tenderness around sites\ positve bowel tones Extremities No cyanosis, No edema, Normal pulses, Greta's sign negative Neurological No lateralizing signs Assessment and Plan Problem List 1. Cholecystitis Status Resolved Plan patient stable s/p lap cholecsytecotmy Has leucocytosis which is probably reactive advised to return if with fever,c hills, incrasin abdominalpain foolow up with dr. snyder as ascheduled resume home meds
--- NOTE | 2016-10-11 09:12 | NUR ---
SPOKE TO DR JACQUES AT 0845 THIS AM REGARDING SLIGHTLY ELEVATED WBC COUNT (14.5) - HE IS OK TO GO HOME WITHOUT ABX AT THIS TIME.
--- NOTE | 2016-10-11 09:35 | DISCHARGE SUMMARY ---
ADMIT DATE: 10/09/2016 DISCHARGE DATE: 10/11/2016 ADMITTING DIAGNOSES: 1. Acalculous cholecystitis 2. History of pneumonia 3. History of hypercholesterolemia DISCHARGE DIAGNOSES: 1. Acalculous cholecystitis 2. History of pneumonia 3. History of hypercholesterolemia BRIEF HISTORY: The patient is a 65-year-old male who presented with right upper abdominal discomfort. He was worked up in the ED and it showed an abnormal gallbladder suspicious for cholecystitis. HOSPITAL COURSE: The patient was admitted and surgery was consulted. The patient had a laparoscopic cholecystectomy done on 10/10/[address] Multani. Findings noted in his intraoperative report. Postoperative course was unremarkable. The next hospital day, he was tolerating liquids. He did not have any chest pain. No shortness of breath. No fever. He had some mild leukocytosis of 14.5, but I suspect this is reactive. AST and ALT were 62 and 87 at the time of discharge. DISCHARGE INSTRUCTIONS/MEDICATIONS: He was discharged home in stable condition. Advised to follow up with Dr. Multani in 1 week, also advised to follow up with his primary care physician. He will resume atorvastatin 40 mg daily and aspirin 1 p.o. daily. Other discharge medications include hydrocodone/acetaminophen 7.5 per 15 mL q.6 hours p.r.n. pain. The patient was informed of the side effects of narcotics. He was informed not to drink, drive or operate machinery while on these medications and return if he has increasing abdominal pain, fever or chills.
--- NOTE | 2016-10-11 10:33 | NUR ---
PT DC TO HOME WITH FOLLOW UP APPT MAKE ON 10/17/[address] MCCURDY. IV DC'D WITHOUT DIFFICULTY. ALL BELONGINGS WITH PT. ALL QUESTIONS ANSWERED. RX GIVEN TO PT FOR PAIN CONTROL. PT DENIES PAIN AT THIS TIME. DENIES N/V. VSS. STATES READINESS TO GO HOME. LEAVING WITH SO IN PRIVATE VEHICLE.
--- NOTE | 2016-10-15 13:22 | ED MED RECONCILIATION SUMMARY ---
Patient: DARIAN CLEVELAND Medication Reconciliation Report [facility] VisitID: [id number] [address] [place] [address] 65y, M Registration Date/Time: 10/09/2016 Weight: 77.5 kg Height/Length: 73 in. BMI: 22.5 ALLERGIES: None The patient's Home Medications are listed below: THE FOLLOWING MEDICATIONS NEED TO BE RECONCILED: Aspirin Adult Low Strength Oral Aspirin Oral (325 mg) 1 tablet, daily Atorvastatin Calcium Oral The source(s) of the original Home Medication information: patient The following Medications were given to the patient in the Emergency Department: GI COCKTAIL WHITE [PO] PO 30 mL, administered: 10/09/2016 9:25:00 PM Zosyn [IVPB] IVPB bolus 0, then 4.5 gm 120 mL/hr, administered: 10/09/2016 11:54:00 PM The following Medications were prescribed to the patient: None.
--- NOTE | 2016-10-15 13:22 | ED MAR SUMMARY ---
..... Medication Administration Record [facility] [address] [place] [address] Patient: DARIAN CLEVELAND Visit ID: [id number] 65y, M Weight: 77.5 kg Height/Length: 73 in BMI: 22.5 ALLERGIES: None Given 21:25 10/09/2016 Laura Reagan, RShanelleNShanelle Medication Administered: GI COCKTAIL WHITE [PO] (SIMETHICONE), Dose: 30 mL Oral Suspension PO. Medication Ordered: GI Cocktail WHITE PO 30 mL (NOW). Start 23:54 10/09/2016 Laura Reagan, R.N. Medication Administered: ZOSYN [IVPB] (PIPERACILLIN SOD-TAZOBACTAM SO), Dose: 4.5 gm IVPB, Rate: 120 mL/hr, Dispensed: 100 mL bag, Site: #1 left . Medication Ordered: Zosyn IV 4.5 gm/100mL (NOW).
--- NOTE | 2016-10-15 13:22 | ED DISCHARGE INSTRUCTIONS ---
Patient: DARIAN CLEVELAND General Instructions [facility] VisitID: [id number] [address] [place] [address] 65y, M Registration Date/Time: 10/09/2016 acute cholecystitis atypical chest pain. (Electronically signed by John Cole Dr. 10/15/2016 13:21)
--- NOTE | 2016-10-15 13:22 | ED MAR SUMMARY ---
..... Medication Administration Record [facility] [address] [place] [address] Patient: DARIAN CLEVELAND Visit ID: [id number] 65y, M Weight: 77.5 kg Height/Length: 73 in BMI: 22.5 ALLERGIES: None Given 21:25 10/09/2016 Laura Reagan, RShanelleNShanelle Medication Administered: GI COCKTAIL WHITE [PO] (SIMETHICONE), Dose: 30 mL Oral Suspension PO. Medication Ordered: GI Cocktail WHITE PO 30 mL (NOW). Start 23:54 10/09/2016 Laura Reagan, R.N. Medication Administered: ZOSYN [IVPB] (PIPERACILLIN SOD-TAZOBACTAM SO), Dose: 4.5 gm IVPB, Rate: 120 mL/hr, Dispensed: 100 mL bag, Site: #1 left . Medication Ordered: Zosyn IV 4.5 gm/100mL (NOW).
--- NOTE | 2016-10-15 13:22 | ED MED RECONCILIATION SUMMARY ---
Patient: DARIAN CLEVELAND Medication Reconciliation Report [facility] VisitID: [id number] [address] [place] [address] 65y, M Registration Date/Time: 10/09/2016 Weight: 77.5 kg Height/Length: 73 in. BMI: 22.5 ALLERGIES: None The patient's Home Medications are listed below: THE FOLLOWING MEDICATIONS NEED TO BE RECONCILED: Aspirin Adult Low Strength Oral Aspirin Oral (325 mg) 1 tablet, daily Atorvastatin Calcium Oral The source(s) of the original Home Medication information: patient The following Medications were given to the patient in the Emergency Department: GI COCKTAIL WHITE [PO] PO 30 mL, administered: 10/09/2016 9:25:00 PM Zosyn [IVPB] IVPB bolus 0, then 4.5 gm 120 mL/hr, administered: 10/09/2016 11:54:00 PM The following Medications were prescribed to the patient: None.
--- NOTE | 2016-10-15 13:22 | ED DISCHARGE INSTRUCTIONS ---
Patient: DARIAN CLEVELAND General Instructions [facility] VisitID: [id number] [address] [place] [address] 65y, M Registration Date/Time: 10/09/2016 acute cholecystitis atypical chest pain. (Electronically signed by John Cole Dr. 10/15/2016 13:21)
== END 2016-10-11 10:45 | disposition home or self-care (01) ==
LOC: ED SRH 20:56 → ACUTE2 SRH 23:34 → TRANS SRH 23:34 → ACUTE2 SRH 10-10 00:59
PROVIDERS: Specialist; ADMIT Family Medicine
PROC: 0FT44ZZ Resection of Gallbladder, Percutaneous Endoscopic Approach (ICD-10-PCS; principal; 2016-10-10 16:30)
PROC: BF101ZZ Fluoroscopy of Bile Ducts using Low Osmolar Contrast (ICD-10-PCS; principal; 2016-10-10 16:30)
DX: K81.9 Cholecystitis, unspecified (principal); R79.89 Other specified abnormal findings of blood chemistry; E78.00 Pure hypercholesterolemia, unspecified; Z87.01 Personal history of pneumonia (recurrent); I20.1 Angina pectoris with documented spasm
CPT/HCPCS: 29229; 29230; 50002; 60001; 70002; 80102; 80212; 80248; 82669; 82794; 82807; 83338; 83339; 83348; 83587; 83920; 83937; 83982; 84038; 90074; 90100; 90616; 91556; 92235; 94060; 95059

== ENCOUNTER 2016-10-17 09:19 | Outpatient (CLI) | payer MEDICARE ==
[~2016-10-17 09:19] MED LIST: ASPIRIN ADULT L81 MG PO; ATORVASTATIN CA10 MG PO; HYCET1 ML PO
== END 2016-10-17 23:00 ==
LOC: LAB SRH 09:19
DX: R42 Dizziness and giddiness (principal); I51.9 Heart disease, unspecified
CPT/HCPCS: 90074; 90100; 95059